=== PATIENT | female | born 1990 | race Caucasian/White ===

== ENCOUNTER 2021-12-17 05:45 | Day surgery (SDC) | payer MEDICAID, OTHER ==
[2021-12-16 09:59] LABS: HCG,QUAL RESULT NEGATIVE (NEGATIVE)
[~2021-12-17] VITALS: Ht 142.2 cm; Wt 91.4 kg
[2021-12-17] MEDS ORDERED: PROPOFOL 200MG/ 20ML VIAL (DIPRIVAN) IV ONE (08:38)
[2021-12-17] MEDS ORDERED: ONDANSETRON HCL 4 MG/2 ML VIAL IVP ONE (08:38)
[2021-12-17] MEDS ORDERED: ROCURONIUM BROMIDE 10 MG/ML (ZEMURON) IV ONE (08:38)
[2021-12-17] MEDS ORDERED: SEVOFLURANE 15 MIN GAS INH ONE (08:38)
[2021-12-17] MEDS ORDERED: LR 1,000 ML IV.SOLN IV ONE (08:38)
[2021-12-17] MEDS ORDERED: KETOROLAC TROMETHAMINE 30 MG VIAL IVP ONE (08:38)
[2021-12-17] MEDS ORDERED: BUPIVACAINE /PF 0.5% 30 ML VIAL INJ ONE (08:38)
[2021-12-17] MEDS ORDERED: NS IRRIG SOLN 1000 ML IR ONE (08:38)
[2021-12-17] MEDS ORDERED: LABETALOL 100 MG/ 20ML VIAL IVP PRN (10:15)
[2021-12-17] MEDS ORDERED: LR 1,000 ML IV SCH (10:15)
[2021-12-17] MEDS ORDERED: KETOROLAC TROMETHAMINE 30 MG VIAL IVP PRN (10:15)
[2021-12-17] MEDS ORDERED: ONDANSETRON HCL 4 MG/2 ML VIAL IVP PRN (10:15)
[2021-12-17] MEDS ORDERED: KETOROLAC TROMETHAMINE 30 MG VIAL ONE (10:16)
[2021-12-17] MEDS ORDERED: MORPHINE 2 MG/ML INJ. SYRINGE ONE (10:36)
[2021-12-17] MEDS ORDERED: MORPHINE 2 MG/ML INJ. SYRINGE IVP ONE (11:00)
[2021-12-17 15:26] VITALS: BP_SYST 101
[2021-12-22] MEDS ORDERED: CLIN-142 PO ×2 (21:04)
== END 2021-12-17 13:00 | disposition home or self-care (01) ==
LOC: SMU 05:45 → SDS 05:45
PROVIDERS: ATTEND Obstetrics & Gynecology
DX: N83.202 Unspecified ovarian cyst, left side (principal); N83.201 Unspecified ovarian cyst, right side; E66.01 Morbid (severe) obesity due to excess calories; Z68.41 Body mass index [BMI] 40.0-44.9, adult; Z79.899 Other long term (current) drug therapy; Z20.822 Contact with and (suspected) exposure to COVID-19
CPT/HCPCS: 84703; 86886; 86900; 86901; 36415; 58925; 88305; U0003; J3490; J1885; J2405; J2704; J2270; J7120

== ENCOUNTER 2021-12-22 18:22 | Emergency (ER) | payer MEDICAID ==
[~2021-12-22] VITALS: Ht 142.2 cm; Wt 104.3 kg
[2021-12-22 19:35] VITALS: BP_SYST 123
[2021-12-22 20:03] LABS: BASOPHILS % (AUTO) 0.4 % (0.0-2.0); EOSINOPHILS # (AUTO) 0.2 K/uL (0.0-0.4); HEMATOCRIT 34.1 % (36-48); HEMOGLOBIN 11.4 g/dL (12.0-16.0); LYMPHOCYTES # (AUTO) 1.4 K/uL (1.0-5.5); LYMPHOCYTES % (AUTO) 13.1 % (20.5-51.5); MEAN CORPUSCULAR HEMOGLOBIN 27 pg (27-31); MEAN CORPUSCULAR HGB CONC 33 % (32-36); MEAN CORPUSCULAR VOLUME 80 fL (79.0-98.0); MONOCYTES % (AUTO) 8.8 % (1.7-9.3); NEUTROPHILS # (AUTO) 8.3 K/uL (1.8-7.7); NEUTROPHILS % (AUTO) 75.7 % (40.0-70.0); PLATELET COUNT (AUTO) 396 K/uL (130-430); RED BLOOD CELL COUNT(AUTO) 4.25 MIL/uL (4.2-6.2); WHITE BLOOD COUNT (AUTO) 10.9 K/uL (4.8-10.8)
--- NOTE | 2021-12-22 20:06 | NUR ---
PT HERE C/O FEVER S/P LAP CYST REMOVAL SURGERY. PT DENIES N/V/D. SHE STATED THAT SURGICAL SITE HAS SOME DISCHARGES. PMH;DENIES PT AAOX4, NO SOB NOTED AND NAD. PT SEEN AND EXAMINE BY DR. CASTRO
[2021-12-22 20:16] LABS: CALCIUM 9.1 mg/dL (8.4-11.0); CREATININE 0.6 mg/dL (0.55-1.30); POTASSIUM 3.9 mmol/L (3.5-5.1)
--- NOTE | 2021-12-22 20:30 | NUR ---
Patient A/Ox4, VSS, ambulatory, resp even and unlabored. Patient lying in bed with side rails raised. Patient's friend at bedside. Nad noted at this time.
[2021-12-22 20:32] LABS: ALBUMIN 3.2 g/dL (3.4-4.8); C-REACTIVE PROTEIN QUANT 12.5 mg/dL (0-0.5); TOTAL BILIRUBIN 0.2 mg/dL (0.0-1.0)
--- NOTE | 2021-12-22 20:40 | NUR ---
RADHA Saucedo at bedside.
--- NOTE | 2021-12-22 20:45 | NUR ---
Wound care done by structural engineering technician
[2021-12-22] MEDS ORDERED: CLIN-142 PO (21:04)
[2021-12-22] MEDS ORDERED: NEOM28.37 TP (21:04)
[2021-12-22] MEDS ORDERED: BACITRACIN 1 GM OINT TP ONE (21:25)
[2021-12-22 21:29] LABS: BILIRUBIN,URINE NEGATIVE (NEGATIVE); BLOOD, URINE 2+ (NEGATIVE); CLARITY/URINE CLEAR (CLEAR); COLOR,URINE YELLOW (YELLOW); GLUCOSE,URINE NEGATIVE (NEGATIVE); KETONES,URINE NEGATIVE (NEGATIVE); LEUKOCYTE ESTERASE ,URINE NEGATIVE (NEGATIVE); NITRITE, URINE NEGATIVE (NEGATIVE); PROTEIN URINE NEGATIVE (NEGATIVE); UROBILINOGEN,URINE 0.2 (0.2-1.0)
[2021-12-22 21:40] LABS: BACTERIA,URINE RARE /HPF (None Seen); MUCUS,URINE 1+ /LPF (None Seen); WBC,URINE 0-3 /HPF (0-3)
[2021-12-22 21:46] VITALS: BP_SYST 123
--- NOTE | 2021-12-22 21:46 | NUR ---
Patient given written and verbal discharge instructions and verbalizes understanding. ER MD discussed with patient the results and treatment provided. Patient in stable condition. ID arm band removed. Rx of clindamycin hcl and neomycn given. Patient educated on pain management and to follow up with PMD. Pain Scale 0/10 Opportunity for questions provided and answered. Medication side effect fact sheet provided.
== END 2021-12-22 23:28 | disposition home or self-care (01) ==
LOC: SED 18:22
DX: L08.9 Local infection of the skin and subcutaneous tissue, unspecified (principal); R50.9 Fever, unspecified; Z88.5 Allergy status to narcotic agent; Z79.899 Other long term (current) drug therapy
CPT/HCPCS: 36415; 71045; 80053; 81000; 81025; 83605; 85025; 86140; 99284

== ENCOUNTER 2021-12-27 05:53 | Inpatient (IN) | payer MEDICAID ==
[~2021-12-27] VITALS: Ht 142.2 cm; Wt 91.6 kg
[~2021-12-27 05:53] MED LIST: CLIN-142 PO; NEOM28.37 TP
[2021-12-27 06:00] VITALS: BP_SYST 119
[2021-12-27] MEDS ORDERED: KETOROLAC TROMETHAMINE 15 MG VIAL IVP ONE (07:00)
[2021-12-27] MEDS ORDERED: NACL 0.9% 1,000 ML IV ONE (07:00)
[2021-12-27 07:45] LABS: BASOPHILS % (AUTO) 0.3 % (0.0-2.0); EOSINOPHILS # (AUTO) 0.1 K/uL (0.0-0.4); EOSINOPHILS % (AUTO) 0.6 % (0.0-4.0); HEMATOCRIT 33.8 % (36-48); HEMOGLOBIN 11.2 g/dL (12.0-16.0); LYMPHOCYTES # (AUTO) 1.2 K/uL (1.0-5.5); LYMPHOCYTES % (AUTO) 7.5 % (20.5-51.5); MEAN CORPUSCULAR HEMOGLOBIN 27 pg (27-31); MEAN CORPUSCULAR HGB CONC 33 % (32-36); MEAN CORPUSCULAR VOLUME 80 fL (79.0-98.0); MONOCYTES # (AUTO) 1.4 K/uL (0.0-1.0); MONOCYTES % (AUTO) 8.4 % (1.7-9.3); NEUTROPHILS # (AUTO) 13.4 K/uL (1.8-7.7); NEUTROPHILS % (AUTO) 83.2 % (40.0-70.0); PLATELET COUNT (AUTO) 489 K/uL (130-430); RED BLOOD CELL COUNT(AUTO) 4.21 MIL/uL (4.2-6.2); WHITE BLOOD COUNT (AUTO) 16.1 K/uL (4.8-10.8)
[2021-12-27 07:52] LABS: CALCIUM 9.1 mg/dL (8.4-11.0); CREATININE 0.64 mg/dL (0.55-1.30)
[2021-12-27 07:53] LABS: PROTHROMBIN TIME 10.2 SECS (9.5-12.5)
[2021-12-27 08:04] LABS: TOTAL BILIRUBIN 0.6 mg/dL (0.0-1.0)
[2021-12-27] MEDS ORDERED: PIPERACILLIN/TAZO 3.375 GM in NS 50 ML IV ONE (09:00)
[2021-12-27] MEDS ORDERED: VANCOMYCIN HCL 1,000 MG in NS 250 ML IV ONE (09:00)
[2021-12-27] MEDS ORDERED: PIPERACILLIN/TAZOBACTAM 3.375 GM/VIAL (ZOSYN) IV ONE (09:34)
[2021-12-27] MEDS ORDERED: VANCOMYCIN HCL 1000 MG/VIAL IV ONE (09:34)
[2021-12-27 09:42] LABS: BILIRUBIN,URINE NEGATIVE (NEGATIVE); BLOOD, URINE 3+ (NEGATIVE); COLOR,URINE YELLOW (YELLOW); GLUCOSE,URINE NEGATIVE (NEGATIVE); KETONES,URINE NEGATIVE (NEGATIVE); LEUKOCYTE ESTERASE ,URINE NEGATIVE (NEGATIVE); NITRITE, URINE NEGATIVE (NEGATIVE); PROTEIN URINE NEGATIVE (NEGATIVE); UROBILINOGEN,URINE 0.2 (0.2-1.0)
[2021-12-27 09:45] LABS: CLARITY/URINE HAZY (CLEAR)
[2021-12-27 09:49] LABS: BACTERIA,URINE FEW /HPF (None Seen); MUCUS,URINE 1+ /LPF (None Seen); WBC,URINE 0-3 /HPF (0-3)
[2021-12-27] MEDS ORDERED: MORPHINE 2 MG/ML INJ. SYRINGE IVP PRN (11:30)
[2021-12-27] MEDS ORDERED: PIPERACILLIN/TAZO 3.375/DEX-IS 50 ML IV SCH (14:00)
[2021-12-27 15:15] VITALS: BP_SYST 102
[2021-12-27] MEDS: NACL 0.9% 1,000 ML IV SCH ×2 (16:18→22:00)
[2021-12-27] MEDS: PIPERACILLIN/TAZO 3.375/DEX-IS 50 ML IV SCH ×2 (17:34→22:00)
[2021-12-27 20:00] VITALS: BP_SYST 130
[2021-12-27] MEDS ORDERED: VANCOMYCIN HCL 1,750 MG in NS 500 ML IV SCH (21:00)
[2021-12-27] MEDS ORDERED: DIPHENHYDRAMINE INJ 50 MG/ML VIAL ONE (22:00)
[2021-12-27] MEDS ORDERED: DIPHENHYDRAMINE INJ 50 MG/ML VIAL IVP PRN (22:00)
[2021-12-28] MEDS: PIPERACILLIN/TAZO 3.375/DEX-IS 50 ML IV SCH ×4 (05:02→22:12)
[2021-12-28 07:52] LABS: BASOPHILS % (AUTO) 0.2 % (0.0-2.0); EOSINOPHILS # (AUTO) 0.2 K/uL (0.0-0.4); EOSINOPHILS % (AUTO) 2.8 % (0.0-4.0); HEMATOCRIT 30.8 % (36-48); HEMOGLOBIN 10.3 g/dL (12.0-16.0); LYMPHOCYTES % (AUTO) 22.7 % (20.5-51.5); MEAN CORPUSCULAR HEMOGLOBIN 27 pg (27-31); MEAN CORPUSCULAR HGB CONC 33 % (32-36); MEAN CORPUSCULAR VOLUME 80 fL (79.0-98.0); MONOCYTES # (AUTO) 0.7 K/uL (0.0-1.0); MONOCYTES % (AUTO) 8.3 % (1.7-9.3); NEUTROPHILS # (AUTO) 5.7 K/uL (1.8-7.7); PLATELET COUNT (AUTO) 480 K/uL (130-430); RED BLOOD CELL COUNT(AUTO) 3.84 MIL/uL (4.2-6.2); RED CELL DISTRIBUTION WIDTH 13.9 % (9.0-15.0); WHITE BLOOD COUNT (AUTO) 8.6 K/uL (4.8-10.8)
[2021-12-28 08:00] VITALS: BP_SYST 98
[2021-12-28] MEDS: NACL 0.9% 1,000 ML IV SCH ×2 (08:00→18:06)
[2021-12-28 08:51] LABS: ALBUMIN 2.4 g/dL (3.4-4.8); CALCIUM 8.8 mg/dL (8.4-11.0); CREATININE 0.53 mg/dL (0.55-1.30); TOTAL BILIRUBIN 0.1 mg/dL (0.0-1.0)
[2021-12-28 12:00] VITALS: BP_SYST 116
[2021-12-28] MEDS ORDERED: SERT25TA77 PO (15:26)
[2021-12-28] MEDS ORDERED: SERTRALINE HCL 50 MG TABLET PO ONE (15:45)
[2021-12-28 16:00] VITALS: BP_SYST 121
[2021-12-28 20:57] VITALS: BP_SYST 100
[2021-12-29] MEDS: NACL 0.9% 1,000 ML IV SCH ×2 (04:48→16:06)
[2021-12-29] MEDS: PIPERACILLIN/TAZO 3.375/DEX-IS 50 ML IV SCH ×4 (04:49→22:19)
[2021-12-29 08:00] VITALS: BP_SYST 124
[2021-12-29] MEDS: SERTRALINE HCL 50 MG TABLET PO SCH (10:09)
[2021-12-29 11:06] VITALS: BP_SYST 100
[2021-12-29 16:37] VITALS: BP_SYST 99
[2021-12-29 20:00] VITALS: BP_SYST 127
[2021-12-29] MEDS: LINEZOLID 300 ML IV SCH (22:18)
[2021-12-30] MEDS: PIPERACILLIN/TAZO 3.375/DEX-IS 50 ML IV SCH ×2 (04:25→11:18)
[2021-12-30 04:32] VITALS: BP_SYST 119
[2021-12-30 07:00] VITALS: BP_SYST 131
[2021-12-30 07:22] LABS: BASOPHILS % (AUTO) 0.4 % (0.0-2.0); EOSINOPHILS # (AUTO) 0.2 K/uL (0.0-0.4); EOSINOPHILS % (AUTO) 2.9 % (0.0-4.0); HEMATOCRIT 31.2 % (36-48); HEMOGLOBIN 10.6 g/dL (12.0-16.0); LYMPHOCYTES # (AUTO) 2.3 K/uL (1.0-5.5); LYMPHOCYTES % (AUTO) 27.5 % (20.5-51.5); MEAN CORPUSCULAR HEMOGLOBIN 27 pg (27-31); MEAN CORPUSCULAR HGB CONC 34 % (32-36); MEAN CORPUSCULAR VOLUME 79 fL (79.0-98.0); MONOCYTES # (AUTO) 0.8 K/uL (0.0-1.0); MONOCYTES % (AUTO) 9.1 % (1.7-9.3); NEUTROPHILS % (AUTO) 60.1 % (40.0-70.0); PLATELET COUNT (AUTO) 530 K/uL (130-430); RED BLOOD CELL COUNT(AUTO) 3.92 MIL/uL (4.2-6.2); RED CELL DISTRIBUTION WIDTH 13.8 % (9.0-15.0); WHITE BLOOD COUNT (AUTO) 8.3 K/uL (4.8-10.8)
[2021-12-30 07:35] LABS: CREATININE 0.61 mg/dL (0.55-1.30)
[2021-12-30] MEDS ORDERED: METR-154 PO (07:44)
[2021-12-30] MEDS ORDERED: LEVO-62 PO (07:44)
[2021-12-30 08:00] VITALS: BP_SYST 131
[2021-12-30] MEDS: SERTRALINE HCL 50 MG TABLET PO SCH (08:52)
[2021-12-30] MEDS: LINEZOLID 300 ML IV SCH (08:52)
[2021-12-30 11:09] VITALS: BP_SYST 118
[2021-12-30] MEDS: NACL 0.9% 1,000 ML IV SCH ×2 (11:18)
[2021-12-30 13:34] VITALS: BP_SYST 118
== END 2021-12-30 23:16 | disposition home or self-care (01) | DRG 721 ==
LOC: SED 05:53 → SMU 11:23
PROVIDERS: ADMIT Family Medicine; ATTEND Family Medicine
DX: T81.40XA Infection following a procedure, unspecified, initial encounter (principal); A41.9 Sepsis, unspecified organism; E66.01 Morbid (severe) obesity due to excess calories; N73.9 Female pelvic inflammatory disease, unspecified; Y83.8 Other surgical procedures as the cause of abnormal reaction of the patient, or of later complication, without mention of misadventure at the time of the procedure; Z20.822 Contact with and (suspected) exposure to COVID-19; Z79.891 Long term (current) use of opiate analgesic; Z79.899 Other long term (current) drug therapy; Z88.5 Allergy status to narcotic agent; Y92.89 Other specified places as the place of occurrence of the external cause; Z68.42 Body mass index [BMI] 45.0-49.9, adult; E86.0 Dehydration
CPT/HCPCS: 36415; 72193-TC; 76376; 80048; 80053; 81000; 83605; 85025; 85610-TC; 85730-TC; 87040; 87081; 87086; 96361; 96365; 96368; 99285; J1200; J2020; J2543; J3370; J7030; J7040; J7042; Q9967

== ENCOUNTER 2022-07-04 13:19 | Emergency (ER) | payer MEDICAID ==
[~2022-07-04] VITALS: Ht 142.2 cm; Wt 90.7 kg
[~2022-07-04 13:19] MED LIST changes: -CLIN-142 PO; +LEVO-62 PO; +METR-154 PO; +SERT25TA77 PO
[2022-07-04 13:27] VITALS: BP_SYST 111
[2022-07-04 15:15] LABS: BASOPHILS # (AUTO) 0.1 K/uL (0.0-0.2); BASOPHILS % (AUTO) 0.7 % (0.0-2.0); EOSINOPHILS # (AUTO) 0.1 K/uL (0.0-0.4); EOSINOPHILS % (AUTO) 0.7 % (0.0-4.0); HEMATOCRIT 40.7 % (36-48); HEMOGLOBIN 13.3 g/dL (12.0-16.0); LYMPHOCYTES # (AUTO) 1.9 K/uL (1.0-5.5); LYMPHOCYTES % (AUTO) 19.1 % (20.5-51.5); MEAN CORPUSCULAR HEMOGLOBIN 26 pg (27-31); MEAN CORPUSCULAR HGB CONC 33 % (32-36); MEAN CORPUSCULAR VOLUME 80 fL (79.0-98.0); MONOCYTES # (AUTO) 0.8 K/uL (0.0-1.0); MONOCYTES % (AUTO) 8.4 % (1.7-9.3); NEUTROPHILS # (AUTO) 7.2 K/uL (1.8-7.7); NEUTROPHILS % (AUTO) 71.1 % (40.0-70.0); PLATELET COUNT (AUTO) 441 K/uL (130-430); RED BLOOD CELL COUNT(AUTO) 5.08 MIL/uL (4.2-6.2); RED CELL DISTRIBUTION WIDTH 14.6 % (9.0-15.0); WHITE BLOOD COUNT (AUTO) 10.1 K/uL (4.8-10.8)
[2022-07-04 15:41] LABS: ALANINE AMINOTRANSFERASE 24 U/L (12-78); ALBUMIN 3.7 g/dL (3.4-4.8); ANION GAP 10 (5-15); ASPARTATE AMINOTRANSFERASE 15 U/L (10-37); CALCIUM 8.8 mg/dL (8.4-11.0); CHLORIDE 105 mmol/L (98-107); CREATININE 0.63 mg/dL (0.55-1.30); GFR AFRICAN AMERICAN 143 mL/min (>90); GLUCOSE 114 mg/dL (70-99); TOTAL BILIRUBIN 0.5 mg/dL (0.0-1.0); UREA NITROGEN, BLOOD 10 mg/dL (8-21)
[2022-07-04 16:24] LABS: STREPTOCOCCUS A SCREEN (RAPID) NEGATIVE (NEGATIVE)
[2022-07-04 17:05] VITALS: BP_SYST 118
== END 2022-07-04 17:03 | disposition home or self-care (01) ==
LOC: SED 13:19
DX: F41.9 Anxiety disorder, unspecified (principal); R06.02 Shortness of breath; R09.89 Other specified symptoms and signs involving the circulatory and respiratory systems; Z88.1 Allergy status to other antibiotic agents; Z88.5 Allergy status to narcotic agent; Z79.899 Other long term (current) drug therapy; Z20.822 Contact with and (suspected) exposure to COVID-19
CPT/HCPCS: 36415; 71045; 80053; 83880; 84484; 85025; 85379; 86403; 87081; 93005; 99285

== ENCOUNTER 2022-08-29 11:35 | Emergency (ER) | payer MEDICAID ==
[~2022-08-29] VITALS: Ht 144.8 cm; Wt 81.6 kg
[2022-08-29 11:51] VITALS: RESP 20; O2SAT 98
[2022-08-29 12:38] LABS: BASOPHILS % (AUTO) 0.5 % (0.0-2.0); EOSINOPHILS # (AUTO) 0.1 K/uL (0.0-0.4); EOSINOPHILS % (AUTO) 1.6 % (0.0-4.0); HEMATOCRIT 40.9 % (36-48); LYMPHOCYTES # (AUTO) 1.7 K/uL (1.0-5.5); LYMPHOCYTES % (AUTO) 20.1 % (20.5-51.5); MEAN CORPUSCULAR HEMOGLOBIN 26 pg (27-31); MEAN CORPUSCULAR HGB CONC 32 % (32-36); MEAN CORPUSCULAR VOLUME 82 fL (79.0-98.0); MONOCYTES # (AUTO) 0.6 K/uL (0.0-1.0); MONOCYTES % (AUTO) 7.3 % (1.7-9.3); NEUTROPHILS # (AUTO) 6.1 K/uL (1.8-7.7); NEUTROPHILS % (AUTO) 70.5 % (40.0-70.0); PLATELET COUNT (AUTO) 420 K/uL (130-430); RED CELL DISTRIBUTION WIDTH 14.5 % (9.0-15.0); WHITE BLOOD COUNT (AUTO) 8.7 K/uL (4.8-10.8)
[2022-08-29 12:46] LABS: ANION GAP 10 (5-15); CALCIUM 8.7 mg/dL (8.4-11.0); CHLORIDE 103 mmol/L (98-107); CREATININE 0.63 mg/dL (0.55-1.30); GFR AFRICAN AMERICAN 143 mL/min (>90); GLUCOSE 96 mg/dL (74-106); UREA NITROGEN, BLOOD 7 mg/dL (8-21)
[2022-08-29 12:52] LABS: ALANINE AMINOTRANSFERASE 21 U/L (12-78); ALBUMIN 3.5 g/dL (3.4-4.8); AMYLASE 42 U/L (0-100); ASPARTATE AMINOTRANSFERASE 14 U/L (10-37); LIPASE 71 U/L (73-393); TOTAL BILIRUBIN 0.5 mg/dL (0.0-1.0)
[2022-08-29 12:59] LABS: INR 0.9 (0.8-1.2); PROTHROMBIN TIME 9.5 SECS (9.5-12.5)
[2022-08-29 13:16] LABS: BILIRUBIN,URINE NEGATIVE (NEGATIVE); BLOOD, URINE NEGATIVE (NEGATIVE); CLARITY/URINE SL CLOUDY (CLEAR); COLOR,URINE YELLOW (YELLOW); GLUCOSE,URINE NEGATIVE (NEGATIVE); KETONES,URINE TRACE (NEGATIVE); LEUKOCYTE ESTERASE ,URINE NEGATIVE (NEGATIVE); NITRITE, URINE NEGATIVE (NEGATIVE); PROTEIN URINE NEGATIVE (NEGATIVE); UROBILINOGEN,URINE 0.2 (0.2-1.0)
[2022-08-29] MEDS ORDERED: ANURH RC (13:53)
[2022-08-29 14:15] VITALS: BP_SYST 136; PULSE 84; RESP 16; O2SAT 98
[2022-08-29 14:39] LABS: ACETONE, SERUM NEGATIVE (NEGATIVE)
[2022-08-29 15:56] LABS: BACTERIA,URINE RARE /HPF (None Seen); MUCUS,URINE None Seen /LPF (None Seen); RBC,URINE 0-3 /HPF (0-3); WBC,URINE 0-3 /HPF (0-3)
== END 2022-08-29 14:16 | disposition home or self-care (01) ==
LOC: SED 11:35
DX: K64.9 Unspecified hemorrhoids (principal); R10.13 Epigastric pain; R19.7 Diarrhea, unspecified; K21.9 Gastro-esophageal reflux disease without esophagitis; Z88.1 Allergy status to other antibiotic agents; Z88.5 Allergy status to narcotic agent
CPT/HCPCS: 36415; 76376; 80053; 81000; 81025; 82009; 82150; 83605; 83690; 84703; 85025; 85610-TC; 85730-TC; 99284

== ENCOUNTER 2023-10-03 07:20 | Emergency (ER) | payer MEDICAID ==
[~2023-10-03] VITALS: Ht 142.2 cm; Wt 83.9 kg
[~2023-10-03 07:20] MED LIST changes: +ANURH RC
[2023-10-03 07:27] VITALS: BP_SYST 122; PULSE 125; RESP 18; TEMP 98.7; O2SAT 96
[2023-10-03 07:35] VITALS: BP_SYST 122; PULSE 128; RESP 20; TEMP 99; O2SAT 99
[2023-10-03] MEDS: NACL 0.9% 1,000 ML IV ONE (08:02)
[2023-10-03 08:03] LABS: BILIRUBIN,URINE NEGATIVE (NEGATIVE); BLOOD, URINE NEGATIVE (NEGATIVE); GLUCOSE,URINE NEGATIVE (NEGATIVE); KETONES,URINE NEGATIVE (NEGATIVE); LEUKOCYTE ESTERASE ,URINE NEGATIVE (NEGATIVE); NITRITE, URINE NEGATIVE (NEGATIVE); PH,URINE 6.5 (5.0-8.0); PROTEIN URINE NEGATIVE (NEGATIVE); UROBILINOGEN,URINE 0.2 (0.2-1.0)
[2023-10-03 08:05] LABS: CLARITY/URINE SLIGHTLY HAZY (CLEAR); COLOR,URINE STRAW (YELLOW)
[2023-10-03 08:18] LABS: BARBITURATE, URINE NEGATIVE (NEG <=200); BENZODIAZEPINE, URINE NEGATIVE (NEG <=150); COCAINE, URINE NEGATIVE (NEG <=150); METHAMPHETAMINES SCREEN,URINE NEGATIVE (NEG <=500); URINE AMPHETAMINE NEGATIVE (NEG <=500); URINE METHADONE NEGATIVE (NEG <=200)
[2023-10-03 08:19] LABS: CANNABINOID, URINE NEGATIVE (NEG <=50); OPIATE, URINE NEGATIVE (NEG <=100); PHENCYCLIDINE SCREEN,URINE NEGATIVE (NEG <=25); UR TRICYCLIC ANTIDEPRESSANTS NEGATIVE (NEG <=300); URINE OXYCODONE SCREEN NEGATIVE (NEG <=100)
[2023-10-03 08:29] LABS: BASOPHILS % (AUTO) 0.2 % (0.0-2.0); EOSINOPHILS # (AUTO) 0.1 K/uL (0.0-0.4); EOSINOPHILS % (AUTO) 1.3 % (0.0-4.0); HEMATOCRIT 40.6 % (36-48); HEMOGLOBIN 13.5 g/dL (12.0-16.0); LYMPHOCYTES # (AUTO) 0.6 K/uL (1.0-5.5); LYMPHOCYTES % (AUTO) 6.5 % (20.5-51.5); MEAN CORPUSCULAR HEMOGLOBIN 28 pg (27-31); MEAN CORPUSCULAR HGB CONC 33 % (32-36); MEAN CORPUSCULAR VOLUME 82 fL (79.0-98.0); MONOCYTES % (AUTO) 10.3 % (1.7-9.3); NEUTROPHILS # (AUTO) 7.7 K/uL (1.8-7.7); NEUTROPHILS % (AUTO) 81.7 % (40.0-70.0); PLATELET COUNT (AUTO) 347 K/uL (130-430); RED BLOOD CELL COUNT(AUTO) 4.92 MIL/uL (4.2-6.2); WHITE BLOOD COUNT (AUTO) 9.4 K/uL (4.8-10.8)
[2023-10-03 08:40] LABS: INFLUENZA TYPE A Negative (NEGATIVE); INFLUENZA TYPE B NEGATIVE (NEGATIVE)
[2023-10-03 08:50] LABS: INR 0.9 (0.8-1.2); PROTHROMBIN TIME 9.4 SECS (9.5-12.5)
[2023-10-03 08:53] LABS: ANION GAP 11 (5-15); CALCIUM 9.3 mg/dL (8.4-11.0); CARBON DIOXIDE 23 mmol/L (23-29); CHLORIDE 104 mmol/L (98-107); CREATININE 0.58 mg/dL (0.55-1.30); GFR AFRICAN AMERICAN 156 mL/min (>90); GFR NON AFRICAN-AMERICAN 129 mL/min (>90); GLUCOSE 104 mg/dL (74-106); POTASSIUM 4.5 mmol/L (3.5-5.1); SODIUM SERUM 138 mmol/L (136-145); UREA NITROGEN, BLOOD 8 mg/dL (8-21)
[2023-10-03] MEDS ORDERED: NIRM1TAB9 PO (09:17)
== END 2023-10-03 09:32 | disposition home or self-care (01) ==
LOC: SED 07:20
DX: U07.1 COVID-19 (principal); R00.2 Palpitations; K21.9 Gastro-esophageal reflux disease without esophagitis; Z88.1 Allergy status to other antibiotic agents; Z88.5 Allergy status to narcotic agent; Z79.899 Other long term (current) drug therapy
CPT/HCPCS: 99285; 96360; 71045; 87426; 80307; 80048; 83735; 85025; 85610; 85730; 84484; 36415; 93005; 81003; 87804 ×2; 81001; J7030